=== PATIENT | female | born 1975 | race Caucasian/White ===

== ENCOUNTER 2021-01-12 03:59 | Outpatient (CLI) | payer MEDICARE, MEDICAID, SELFPAY ==
--- NOTE | 2021-01-12 07:30 | DI.MAMMO_ITS ---
EXAM: MG MAMMO SCREENING CLINICAL HISTORY: screening,Z12.39 TECHNIQUE: Bilateral full field digital CC and MLO mammographic images were obtained with 3D tomosyn thesis and utilizing computer aided detection (CAD). COMPARISON: Available for comparison. FINDINGS: Masses/Architectural Distortion: None seen. Stable areas of asymmetric breast tissue in both breasts. Microcalcifications: No suspicious pleomorphic-type are seen. Skin Thickening/Nipple Retraction: None. IMPRESSION: 1. No significant interval change with no specific features of malignancy noted. 2. Unless there is more urgent need, screening mammography is recommended, as per [employer] guidelines. BI-RADS Category 2 - Benign Findings Breast Density - Category B - Scattered areas of fibroglandular density Breast density category C or D implies that the patient has dense breast tissue. Dense breast tissue is very common and is not abnormal but dense breast tissue can make it harder to find cancer on a ma mmogram. Also, dense breast tissue may increase their breast cancer risk. This information about the result of the mammogram report was provided to the patient to raise their awareness. Use this report when you speak with the patient about their risks for breast cancer, which includes their family hist ory. At that time, you may recommend for more screening tests (Ultrasound or MRI) as they might be us eful based on their risk. A negative radiographic report should not delay biopsy if a dominant or clinically suspicious mass is present. Up to ten percent of cancers are not identified on mammography. A negative report may reinforce clinical impression. Adenosis and dense breasts may obscure an underlying neoplasm. False positive reports average 6 to 10%. Patient will receive a letter notifying them of these results.
== END 2021-01-12 04:19 ==
DX: Z12.31 Encounter for screening mammogram for malignant neoplasm of breast (principal)
CPT/HCPCS: 77063; 77067

== ENCOUNTER 2021-01-19 02:19 | Outpatient (CLI) | payer MEDICARE, MEDICAID, SELFPAY ==
[2021-01-19 11:08] LABS: ALT 36 U/L (14-59); AST 17 U/L (15-37); Albumin 3.8 g/dL (3.4-5.0); Alkaline Phosphatase 118 U/L (46-116); Anion Gap 5.7 mmol/L (3-11); BUN 15 mg/dL (7-18); Bilirubin, Total 0.4 mg/dL (0.2-1.0); CO2 32.3 mmol/L (21.0-32.0); CREATININE 0.9 mg/dL (0.55-1.02); Calcium 10.1 mg/dL (8.5-10.1); Calculated LDL 217 mg/dL (<100); Chloride 100 mmol/L (98-107); Cholesterol 305 mg/dL (<200); Glucose 96 mg/dL (74-106); HDL Cholesterol 44 mg/dL (40-60); Potassium 4.3 mmol/L (3.5-5.1); Sodium 138 mmol/L (136-145); Total Protein 8.1 g/dL (6.4-8.2); Triglyceride 223 mg/dL (<150)
== END 2021-01-19 02:20 | disposition home or self-care (01) ==
LOC: LBO 02:19
DX: E78.5 Hyperlipidemia, unspecified (principal)
CPT/HCPCS: 36415; 80053; 80061

== ENCOUNTER 2021-12-19 14:49 | Outpatient (CLI) | payer MEDICARE, MEDICAID, SELFPAY ==
--- NOTE | 2021-12-19 11:30 | DI.CT_ITS ---
Exam(s) CT HEAD WO EXAM: CT HEAD WO CLINICAL HISTORY: constant headache for one month. TECHNIQUE: Imaging Protocol: Axial computed tomography images with coronal and sagittal reformatted images were created and reviewed COMPARISON: No exams were available for comparison FINDINGS: There are no skull fractures nor fluid in the visualized paranasal sinuses. There is no evidence of intracranial hemorrhage, mass effect, or shift of midline structures. There are no extra-axial fluid collections. The ventricles are not enlarged or shifted and there is no blo od within the ventricular system nor within the basal cisterns. IMPRESSION: No acute intracranial findings on this noninfused CT scan of the brain. RADIATION DOSE DELIVERED: 688.77mGy.cm Total DLP DATA REPOSITORY: All CT scans at this facility are submitted to the National Radiology Data Registry (NRDR) Dose Index Registry (DIR) with the [employer] (A[employer]). RADIATION OPTIMIZATION: All CT scans at this facility use at least one of these dose optimization te chniques: automated exposure control; mA and/or kV adjustment per patient size (includes targeted exa ms where dose is matched to clinical indication); or iterative reconstruction.
== END 2021-12-19 15:09 ==
PROVIDERS: Visit Provider Family Medicine
DX: G44.89 Other headache syndrome
CPT/HCPCS: 70450

== ENCOUNTER → 2022-01-31 12:29 | Outpatient (BNVA) | payer MEDICARE, MEDICAID, SELFPAY | PROVIDERS: Referring Provider Family Medicine; Visit Provider Nurse Practitioner Adult Health | DX: R42 Dizziness and giddiness (principal); G43.009 Migraine without aura, not intractable, without status migrainosus; R20.2 Paresthesia of skin | CPT/HCPCS: 99205 ==

== ENCOUNTER 2022-02-08 02:27 | Outpatient (CLI) | payer MEDICARE, MEDICAID, SELFPAY ==
[2022-02-08 10:55] LABS: ALT 27 U/L (14-59); AST 12 U/L (15-37); Albumin 4.1 g/dL (3.4-5.0); Alkaline Phosphatase 108 U/L (46-116); Anion Gap 11.2 mmol/L (3-11); BUN 21 mg/dL (7-18); Bilirubin, Total 0.3 mg/dL (0.2-1.0); CO2 25.8 mmol/L (21.0-32.0); CREATININE 0.9 mg/dL (0.55-1.02); Calcium 9.3 mg/dL (8.5-10.1); Calculated LDL 247 mg/dL (<100); Chloride 101 mmol/L (98-107); Cholesterol 338 mg/dL (<200); Glucose 99 mg/dL (74-106); HDL Cholesterol 45 mg/dL (40-60); Potassium 4.3 mmol/L (3.5-5.1); Sodium 138 mmol/L (136-145); Total Protein 7.9 g/dL (6.4-8.2); Triglyceride 233 mg/dL (<150)
[2022-02-08 11:18] LABS: Vitamin D 25 Total 72.8 ng/mL (30-100)
== END 2022-02-08 02:28 | disposition home or self-care (01) ==
LOC: LBO 02:27
PROVIDERS: Visit Provider Family Medicine
DX: Z00.00 Encounter for general adult medical examination without abnormal findings; E78.5 Hyperlipidemia, unspecified; R10.9 Unspecified abdominal pain
CPT/HCPCS: 36415; 80053; 80061; 82306

== ENCOUNTER 2022-02-11 01:09 | Outpatient (CLI) | payer MEDICARE, MEDICAID, SELFPAY ==
--- NOTE | 2022-02-11 07:30 | DI.MRI_ITS ---
Exam(s) MR BRAIN WO EXAM: MR BRAIN WO CLINICAL HISTORY: Worsening dizziness,headache,r51.9 TECHNIQUE: Multiplanar multisequence MRI of the brain was performed. COMPARISON: CT CT HEAD WO from 12/19/2021 FINDINGS: CEREBRAL PARENCHYMA: There is no evidence of intracranial hemorrhage, mass effect, or shift of midline structures. There are no extra-axial fluid collections. Ventricles are not enlarged or shifted. There is no abnormal signal abnormality in the periventricular white matter. There is no significant focal signal abnormality in the cerebellar hemispheres. However, there is significant signal abnormality on both sides of the francesca measuring 2 cm wide by 1 c m AP, not associated with hemorrhage nor abnormal signal on diffusion imaging to suggest acute infarc t at this level. No restricted diffusion at this level nor elsewhere in the brain. SWI imaging reveals no evidence of microhemorrhages. PITUITARY GLAND: No mass nor parasellar abnormality. No obvious abnormality in the cavernous sinuses. FLOW VOIDS: The expected flow voids are noted. Flow void in the basilar artery is present. No evide nce of obvious aneurysm nor obvious vascular malformation. PARANASAL SINUSES: The visualized paranasal sinuses appear unremarkable. No obvious finding ORBITS: No obvious findings. IMPRESSION: Main findings here in the francesca where there is significant signal abnormality as described above. Abs ence of restricted diffusion on DWI implies that this is most probably not an acute ischemic event. Flow void in the adjacent basilar artery appears intact. No other abnormal signal in the brain inclu ding periventricular white matter. Significant consideration here for central pontine myelinolysis. DATA REPOSITORY:
== END 2022-02-11 01:29 ==
PROVIDERS: Visit Provider Family Medicine
DX: R51.9 Headache, unspecified (principal); R42 Dizziness and giddiness; R94.02 Abnormal brain scan
CPT/HCPCS: 70551

== ENCOUNTER 2022-02-14 02:19 | Outpatient (CLI) | payer MEDICARE, MEDICAID, SELFPAY ==
[2022-02-19 14:32] LABS: CSF Bands 1 bands; CSF Olig Bands Interpretation 0 bands (<2); Serum Bands 1 bands
== END 2022-02-14 02:20 | disposition home or self-care (01) ==
LOC: LBO 02:19
PROVIDERS: Visit Provider Nurse Practitioner Adult Health
DX: R27.8 Other lack of coordination (principal)
CPT/HCPCS: 36415; 62270; 82945; 89050; 89051; 82040; 82042; 82784; 83916; 84157; 87070; 87205

== ENCOUNTER 2022-02-14 09:30 | Outpatient (CLI) | payer MEDICARE, MEDICAID, SELFPAY ==
[2022-02-14 09:49] VITALS: BP 106/85; PULSE 68; RESP 16; TEMP 36.4; O2SAT 98
--- NOTE | 2022-02-14 10:18 | W.ANESPRE ---
General Info Date of Service Date Performed: 02/14/22 Height: 5 ft 3 in Weight: 71 kg Body Mass Index (BMI): 27.7 Surgical Procedure: Operation Date: 02/14/22 10:25 Proposed Procedure Side Surgeon p Lumbar Puncture JAYCEE Brady Allergies and Home Medications Allergies Allergy/AdvReac Type Severity Reaction Status Date / Time niacin Allergy Intermediate RASH, Verified 02/14/22 09:44 FLUSHING lamotrigine Allergy Mild FACIAL RASH Verified 02/14/22 09:44 oxcarbazepine Allergy Unknown Verified 02/14/22 09:44 fenofibrate,micronized AdvReac Severe MUSCLE PAIN Verified 02/14/22 09:44 [From Tricor] valacyclovir HCl AdvReac Severe INCREASED Verified 02/14/22 09:44 [From Valtrex] DEPRESSION meloxicam [From Mobic] AdvReac Intermediate H/As Verified 02/14/22 09:44 gabapentin AdvReac Unknown JUST Verified 02/14/22 09:44 DOESN'T LIKE SIDE EFFFECTS Home Medication Medication Instructions Recorded cholecalciferol (vitamin D3) 25 1,000 unit PO BID 01/12/18 mcg (1,000 unit) capsule magnesium oxide 500 mg capsule 500 mg PO DAILY 01/02/21 omega-3 fatty acids 1,000 mg 4,000 mg PO DAILY cap 01/02/21 capsule turmeric root extract 500 mg 2,000 mg PO DAILY cap 01/02/21 capsule vitamin B complex (B 1 tab PO DAILY 01/02/21 Complex-Vitamin B12) metronidazole 0.75 % topical cream 1 applic TOPICAL BID #45 g 02/01/21 diphenhydramine HCl 25 mg capsule 25 mg PO TID PRN #30 cap 02/02/21 mupirocin 2 % topical ointment 1 applic TOPICAL TID #22 g 02/07/21 cyclobenzaprine 10 mg tablet 10 mg PO TID PRN #30 tab 08/09/21 desvenlafaxine succinate 50 mg 50 mg PO DAILY #30 tab-cap 08/09/21 tablet,extended release 24 hr (Pristiq) tramadol 50 mg tablet 50 mg PO Q12H PRN #60 tab-cap 08/09/21 acetaminophen 500 mg tablet 1,000 mg PO Q6H PRN tab 12/19/21 meclizine 25 mg tablet 25 mg PO TID PRN #30 tab 01/24/22 prochlorperazine maleate 5 mg See Rx Instructions PO TID PRN #30 01/31/22 tablet tab topiramate 25 mg tablet (Topamax) 25 mg PO QHS #30 tab 01/31/22 sumatriptan 5 mg/actuation nasal 5 mg INTRANASAL ONCE PRN #6 ea 02/04/22 spray PFSH Active Problems Active Problems: Problem Status Onset Code Chronic pain disorder 07/15/17 G89.4 Hyperlipidemia E78.5 Vitamin deficiency, unspecified E56.9 Muscle spasm of back 01/06/14 M62.830 Low back pain radiating to left leg 01/10/15 M54.5, M79.605 Hip pain, left 01/10/15 M25.552 Gastroesophageal reflux disease 01/06/14 K21.9 Fatigue 12/01/12 R53.83 Depressive disorder F32.9 Arthralgia of multiple joints 09/19/15 M25.50 Insomnia disorder G47.00 Fibromyalgia affecting multiple sites M79.7 Perioral dermatitis L71.0 Headache R51.9 RLQ abdominal pain R10.31 Headache R51.9 BPPV (benign paroxysmal positional vertigo) H81.10 Migraine headache without aura G43.009 Paresthesias R20.2 Clumsiness R27.8 Medical History Medical History History of alcoholism History of tobacco use quit 11/2011 Medical History Comments:: pt reports edible cannibus last night; reports refraining from alcohol at this time. Surgical History Surgical History (Updated 02/14/22 @ 09:42 by Priyanka Faulkner) Abdominal hysterectomy (~2005) Not for cancer Bilateral salpingectomy with oophorectomy (~2005) Hx of appendectomy Tooth extraction (~08/2011) 4 WISDOM TEETH Tobacco Smoking/Tobacco Use Status: Former Tobacco Use Passive smoking exposure: Yes Alcohol Alcohol Intake: current Alcohol intake frequency: holidays/special occasions only Alcohol type: hard liquor Substance Use Substance use: Daily Substance use type: marijuana Counseling provided: none Vital Signs and Lab Results Vital Signs Most Recent Vital Signs in EMR: Most Recent Vital Signs Temp Pulse Resp BP Pulse Ox 36.4 C L 68 16 106/85 98 02/14/22 09:49 02/14/22 09:49 02/14/22 09:49 02/14/22 09:49 02/14/22 09:49 Lab Results Blood Type / Crossmatch: No Data to Display Complete Blood Count: No Data to Display Complete Metabolic Panel: Sodium Level 138 mmol/L (136-145) 02/08/22 09:47 02/08/22 Potassium Level 4.3 mmol/L (3.5-5.1) 02/08/22 09:47 02/08/22 Chloride Level 101 mmol/L (98-107) 02/08/22 09:47 02/08/22 Carbon Dioxide Level 25.8 mmol/L (21.0-32.0) 02/08/22 09:47 02/08/22 Blood Urea Nitrogen 21 mg/dL (7-18) H 02/08/22 09:47 02/08/22 Creatinine 0.9 mg/dL (0.55-1.02) 02/08/22 09:47 02/08/22 Estimated GFR/1.73 m2 >= 60.00 (mL/min/1.73m2) 02/08/22 09:47 02/08/22 Calcium Level 9.3 mg/dL (8.5-10.1) 02/08/22 09:47 02/08/22 Albumin 4.1 g/dL (3.4-5.0) 02/08/22 09:47 02/08/22 Glucose Level 99 mg/dL (74-106) 02/08/22 09:47 02/08/22 Liver Function Panel: Alanine Aminotransferase (ALT/SGPT) 27 U/L (14-59) 02/08/22 09:47 02/08/22 Aspartate Amino Transf (AST/SGOT) 12 U/L (15-37) L 02/08/22 09:47 02/08/22 Coagulation Panel: No Data to Display Cardiac Panel: No Data to Display Arterial Blood Gas: No Data to Display Venous Blood Gas: No Data to Display Pancreas Panel: No Data to Display Thyroid Panel: No Data to Display Infectious Disease: No Data to Display Blood Cultures: No Data to Display Toxicology Panel: No Data to Display Panel: No Data to Display Anesthesia Assessment and Plan Anesthesia History Personal History: No History of Anesthesia Complications Family History: No Family History of Anesthesia Complications Exercise Tolerance Exercise Tolerance: Metabolic Equivalents>4 Pertinent Negatives Pertinent Negatives: No Symptoms of GERD, No Major Cardiovascular Symptoms or Complaints, No Major Pulmonary Symptoms or Complaints and No History of CVA/TIA Cardiac & Pulmonary Exam Cardiac Exam: Normal S1/S2 Heart Sounds Pulmonary Exam: Clear Bilateral Breath Sounds Implantable Cardiac Device Does patient have a Pacemaker or an ICD?: No Airway Exam Known Difficult Airway: No Mallampati Class: 2 Mouth Opening: Normal (> 3cm) Thyromental Distance: Greater than 3 cm Neck Range of Motion: Full ROM Neck Circumference: Normal Teeth Condition: Normal Dentition ASA Classification ASA Score: ASA 2 Emergency Case?: No NPO Status NPO Status: NPO Clears >2 hours, Solids >8 hours Status Status: Not Relevant due to Medical History Anesthesia Plan Resuscitation Status: Full Code Anesthesia Technique: Spinal Anesthesia (Lumbar puncture) Airway Planned: Natural Airway Monitors Used: Standard Monitors Preoperative Comments:: Patient to [facility]SU for lumbar puncture as referred by Dr. Lundberg. No headache today, reports some stifness to lower extremities, some burning and paresthesias.
[2022-02-14 10:43] VITALS: BMI 27.7
[2022-02-14 10:51] VITALS: BP 115/73; PULSE 65; RESP 16; TEMP 36.6; O2SAT 98
[2022-02-14 11:11] VITALS: BP 82/58; PULSE 62; RESP 16; TEMP 36.8; O2SAT 97
--- NOTE | 2022-02-14 11:18 | W.ANESPROC ---
Lumbar Puncture Date Performed: 02/14/22 Procedure Time: 10:51 Requesting Provider: Bety Villa Procedure Location: Day Surgery Unit Standard Monitors Applied: Blood Pressure, SpO2 and See EMR for corresponding vital signs Patient Position: Left Lateral Decubitus Timeout Performed: Yes Sedation Given (Indicate Dose Given): No Sedation given Patient Mental Status: Awake Sterility: Hand Hygiene, Surgical Cap, Surgical Mask, Sterile Gloves, Sterile Drape/Sheet, Sterile Gown and Chlorhexidine Placement Site: L3-L4 Interspace Spinal Needle Type: Rosemary 22 Gauge Needle Length: 3.5 Inch Lumbar Puncture Procedure: Site Prepped, Sterile Drape Placed, 1% Lidocaine to skin and subcutaneous tissue with 25G needle, Spinal Needle Placed, Negative Heme, Positive CSF Flow, CSF Specimen placed into Tubes in Sequential Order and Specimen Labeled, Sent to Lab Ultrasound: Not Used Opening CSF Pressure (cmH2O): 13 Closing CSF Pressure (cmH2O): 11 Paresthesia: Left Paresthesia Duration: Transient Number of Previous Attempts by Other Providers: 2 Number of Attempts (See previous attempts in note section): 3 Procedure Tolerated: No Complications and Patient tolerated well Procedure Outcome: Successful Procedure Comment:: Procedure end time at 1111 Performed By: Walter Reese Other (not listed above): Mary CABRAL attempted twice. Lyndon Reese attempted once and able to obtain
[2022-02-14 12:00] VITALS: BP 99/78; PULSE 61; RESP 16; TEMP 36.4; O2SAT 99
[2022-02-14 12:13] LABS: Glucose (CSF) 61 mg/dL (40-70)
[2022-02-14 12:14] LABS: Total Protein (CSF) 42 mg/dL (15-45)
[2022-02-14 12:21] LABS: Tube # 4
[2022-02-14 12:22] LABS: Clarity Clear; WBC 1 /uL (0-5); Xanthochromia Absent
[2022-02-14 12:23] LABS: RBC 9 /mm3 (0-5)
[2022-02-14 12:36] LABS: RBC Tube#1 CSF 264 /mm3 (0-5)
--- NOTE | 2022-02-14 13:09 | W.ANESPOSTOP ---
Postoperative Evaluation Date, Time and Location Date Performed: 02/14/22 Time Performed: 13:09 Patient Location: Day Surgery Unit Vital Signs Most Recent Imported Vital Signs: Most Recent Vital Signs Temp Pulse Resp BP Pulse Ox 36.4 C L 61 16 99/78 L 99 02/14/22 12:00 02/14/22 12:00 02/14/22 12:00 02/14/22 12:00 02/14/22 12:00 Pain Score Most Recent Pain Score: Most Recent Pain Score Pain Level 0 02/14/22 12:00 Assessment Mental Status: Awake (Alert & Oriented to Patient Baseline) Airway and Respiratory Function: Patent airway with normal (patient baseline) respiratory exam Cardiovascular Function: Hemodynamically Stable Hydration Status: Adequately Hydrated Nausea & Vomiting: No Nausea or Vomiting Pain: Pt. Denies Any Pain Peripheral Nerve Block: Patient did not receive a nerve block Postoperative Comments:: No headache, overall denies complaint. All questions answered.
[2022-02-15 11:06] LABS: Albumin, CSF 20.1 mg/dL (<=25.1); Albumin, S 4.6 g/dL (3.4-4.9); IgG, CSF 3.47 mg/dL (<=5.00); IgG, S 1135 mg/dL (610-1,616); IgG/Albumin, CSF 0.17 Ratio (<=0.24); Synthesis Rate, CSF 1.92 mg/24hrs (<=8.00)
== END 2022-02-14 12:15 | disposition home or self-care (01) ==
PROVIDERS: Nurse Practitioner Adult Health; Visit Provider Nurse Anesthetist, Certified Registered
PROC: 009U3ZZ Drainage of Spinal Canal, Percutaneous Approach (ICD-10-PCS; CPT 62270; principal; 2022-02-14 10:15)
DX: R27.8 Other lack of coordination (principal)
CPT/HCPCS: 62270; 82945; 89050; 89051; 82040; 82042; 82784; 84157; 87070; 87205

== ENCOUNTER 2022-02-19 03:22 | Outpatient (CLI) | payer MEDICARE, MEDICAID, SELFPAY | END 2022-02-19 03:23 | disposition home or self-care (01) | LOC: LBO 03:22 | PROVIDERS: Visit Provider Nurse Practitioner Adult Health ==

== ENCOUNTER → 2022-02-21 01:08 | Outpatient (CLI) | payer MEDICARE, MEDICAID, SELFPAY ==
--- NOTE | 2022-02-21 07:45 | DI.MRI_ITS ---
Exam(s) MR BRAIN W EXAM: MR BRAIN W CLINICAL HISTORY: pontine lesion seen on non-contrast MRI,g93.9. TECHNIQUE: Multiplanar multisequence MRI was performed. COMPARISON: MR MR BRAIN WO from 02/11/2022 FINDINGS: Limited MR examination of the brain was performed with post contrast imaging only, with post contrast axial and coronal T1 weighted imaging and multi planar MP rage imaging. No enhancing lesion identified. Grossly unremarkable appearance [id number] vasculature. Orbit al structures appear intact. IMPRESSION: Negative contrast enhanced MRI. Subtle signal abnormalities noted in the francesca on recent noncontrast MR of February 11 are unlikely to represent pathologic process, however follow-up brain MRI may be obt ained in 12 months if clinically indicated. DATA REPOSITORY:
[2022-02-21] MEDS: Gadoterate meglumine 20 ML VIAL IVP (13:54)
[2022-02-21] MEDS: Normal Saline Flush 10 ML SYR IVP (13:54)
== END ==
PROVIDERS: Visit Provider Nurse Practitioner Adult Health
DX: G93.9 Disorder of brain, unspecified (principal)
CPT/HCPCS: 70552

== ENCOUNTER → 2022-03-18 08:59 | Outpatient (BNVA) | payer MEDICARE, MEDICAID, SELFPAY | PROVIDERS: Visit Provider Nurse Practitioner Adult Health | DX: G43.009 Migraine without aura, not intractable, without status migrainosus (principal); R20.2 Paresthesia of skin; R42 Dizziness and giddiness | CPT/HCPCS: 99213; 99214 ==

== ENCOUNTER → 2022-03-21 09:42 | Outpatient (BNVA) | payer MEDICARE, MEDICAID, SELFPAY | PROVIDERS: Visit Provider Nurse Practitioner Adult Health | DX: G43.909 Migraine, unspecified, not intractable, without status migrainosus (principal) | CPT/HCPCS: 99211; J1885; J2550; 96372 ==

== ENCOUNTER → 2022-05-31 12:28 | Outpatient (CLI) | payer MEDICARE, MEDICAID, SELFPAY ==
--- NOTE | 2022-05-31 07:03 | DI.MAMMO_ITS ---
Exam(s) MAMMO SCREENING EXAM: MAMMO SCREENING CLINICAL HISTORY: screening,Z12.39 TECHNIQUE: Mammograms were interpreted according to the usual protocol including computer analysis w [employer] CAD system, tomosynthesis and C-view imaging. COMPARISON: 2014 through 2020 FINDINGS: The breasts are composed of scattered fibroglandular densities, Breast Density category B. No suspicious masses or suspicious microcalcifications are seen. No skin thickening or abnormal axillary lymph nodes are seen. There has been no significant change from prior exams. IMPRESSION: BI-RADS Category 1, Negative mammogram Yearly screening mammography is recommended. Breast Density - Category B, scattered fibroglandular densities. A negative radiographic report should not delay biopsy if a dominant or clinically suspicious mass is present. Up to ten percent of cancers are not identified on mammography. A negative report may reinforce clinical impression. Adenosis and dense breasts may obscure an underlying neoplasm. False positive reports average 6 to 10%. Patient will receive a letter notifying them of these results.
== END ==
DX: Z12.31 Encounter for screening mammogram for malignant neoplasm of breast (principal); R92.8 Other abnormal and inconclusive findings on diagnostic imaging of breast
CPT/HCPCS: 77063; 77067

== ENCOUNTER → 2022-06-17 14:27 | Outpatient (BNVA) | payer MEDICARE, MEDICAID, SELFPAY | PROVIDERS: Visit Provider Nurse Practitioner Adult Health | DX: M79.7 Fibromyalgia (principal); F32.9 Major depressive disorder, single episode, unspecified; G43.009 Migraine without aura, not intractable, without status migrainosus | CPT/HCPCS: 99213; 99214 ==

== ENCOUNTER → 2022-06-19 08:56 | Outpatient (BNVA) | payer MEDICARE, MEDICAID, SELFPAY | PROVIDERS: Visit Provider Surgery | DX: Z80.0 Family history of malignant neoplasm of digestive organs (principal); K21.9 Gastro-esophageal reflux disease without esophagitis; Z12.11 Encounter for screening for malignant neoplasm of colon ==

== ENCOUNTER 2022-07-02 02:57 | Outpatient (CLI) | payer MEDICARE, MEDICAID, SELFPAY ==
[2022-07-02 12:19] LABS: Source Nasal/Nares
[2022-07-02 15:41] LABS: COVID-19 PCR Negative (Negative)
== END 2022-07-02 02:58 | disposition home or self-care (01) ==
LOC: LBO 02:57
PROVIDERS: Visit Provider Surgery
DX: Z20.822 Contact with and (suspected) exposure to COVID-19 (principal); Z01.818 Encounter for other preprocedural examination
CPT/HCPCS: 87635; 99212

== ENCOUNTER 2022-07-04 11:01 | Day surgery (SDC) | payer MEDICARE, MEDICAID, SELFPAY ==
--- NOTE | 2022-07-04 09:08 | W.PM.DSUDISC ---
Discharge Plan Disposition Patient Disposition: HOME Condition: Good Discharge Details Reason For Visit: routine health maintenance screening colonoscopy Attending Provider: Josemanuel Love Primary Care Provider: Marta Juárez Home Meds and New Rx's Prescriptions: Continued magnesium oxide 500 mg capsule 500 mg PO DAILY omega-3 fatty acids 1,000 mg capsule 4,000 mg PO DAILY vitamin B complex [B Complex-Vitamin B12] Tablet 1 tab PO DAILY turmeric root extract 500 mg capsule 2,000 mg PO DAILY cyclobenzaprine 10 mg tablet 10 mg PO TID PRN (Reason: muscle spasm) Qty: 30 0RF docusate sodium [Colace] 100 mg capsule 100 mg PO DAILY tramadol 50 mg tablet 50 mg PO Q12H PRN Qty: 60 0RF acetaminophen 500 mg tablet 1,000 mg PO Q6H PRN Aimovig Autoinjector 140 mg/mL auto-injector 140 mg subcut QMONTH Qty: 1 3RF meclizine 25 mg tablet 25 mg PO TID PRN (Reason: dizziness) Qty: 30 1RF cholecalciferol (vitamin D3) 25 mcg (1,000 unit) capsule 1,000 unit PO DAILY sumatriptan 5 mg/actuation spray,non-aerosol 5 mg intranasal ONCE PRN (Reason: migraine headache) Qty: 6 3RF Rx Instructions: as a single dose; into one nostril. May repeat after 2 hours. No more than 2 doses in 24 hours. desvenlafaxine succinate [Pristiq] 50 mg tablet extended release 24 hr 50 mg PO DAILY Qty: 30 11RF Rx Instructions: 1 TAB DAILY Discontinued bisacodyl [Dulcolax (bisacodyl)] 5 mg tablet,delayed release (DR/EC) 5 mg PO ONCE Qty: 4 0RF Rx Instructions: take per colonoscopy instructions polyethylene glycol 3350 17 gram/dose powder 238 g PO ONCE Qty: 238 0RF Rx Instructions: take per colonoscopy instructions Discharge Instructions Instructions: Upper Endoscopy (DC), Colonoscopy (DC), Diet for Stomach Ulcers and Gastritis (ED) Additional Instructions: 1. If tolerated, consume a soft, low fiber diet for 1-2 days. [address] Do not drive, drink alcohol, operate machinery, make critical decisions, or do activities that require coordination or balance for 24 hours. 3. Because air was put into your colon during the procedure, expelling air from your rectum (passing gas or farting) is normal. 4. You may not have a bowel movement for 1-3 days because of the colonoscopy prep. This is normal. 5. You may experience a sore throat for 24 to 48 hours. You may use throat lozenges or gargle with warm salt water to relieve the discomfort. 6. Because air was put into your stomach during the procedure, you may experience some belching. 7. Go directly to the emergency room if you notice any of the following: Develop chills (warm to touch), or if you have a thermometer and your temperature is above 101 Difficulty breathing or difficultly swallowing Persistent vomiting Severe abdominal pain, other than gas cramps Severe chest pain Black, tarry stools Any bleeding ? exceeding one tablespoon 8. Call your physician if the site where your intravenous was started becomes red, swollen, painful, and warm to touch. 9. Your physician has reviewed your pre-procedure medications. Please continue to take those medications as previously ordered. You will be given specific information/education regarding any changes to your medications before leaving. Referrals: Marta Juárez NP [Primary Care Provider] - Activity:: Activity as Tolerated Diet:: As Tolerated Discharge Orders Discharge Orders: Discharge Order (Routine); Ordered 07/04/22 Ordered By: Josemanuel Love
--- NOTE | 2022-07-04 09:11 | W.COLOREPORT ---
Colonoscopy Report Date of procedure: 07/04/22 Pre-op diagnosis general: routine health maintenece screening colonoscopy Post-op diagnosis procedure note: other (gastritis, gastric ulcer) Procedure: colonoscopy and EGD Surgeon: Josemanuel Love Anesthesia Type: General:No Airway Estimated blood loss (mL): 10 Pathology: other (gastric ulcer, gastric body biopsies) Complications: None Disposition: same day Indications: eBrta is a 46-year-old woman with longstanding gastroesophageal reflux disease and a recent recrudescence of her dyspepsia despite ongoing proton pump inhibition therapy. Additionally, she has an appropriate age for screening colonoscopy as part of routine health maintenance. Prep: Miralax/Dulcolax Procedure Start Time: 13:08 Procedure End Time: 13:49 Retraction Time: 29 Findings: gastritis, pre-pyloric gastric ulcer <1 cm Procedure Description: After the initiation of monitored anesthetic care, and with the assistance of a bite block, I advanced a standard gastroscope through the mouth past the hypopharynx and into the esophagus.? Under the direct vision of the scope, I advanced down the esophagus into the stomach.? Once I entered the stomach, I performed a brief inspection, followed by retroflexion towards the gastric cardia.? This appeared normal.? After that, I gently advanced the scope around the incisura angularis and examined the pylorus. There was a prepyloric gastric ulcer less than 1 cm in diameter. There was no evidence of active bleeding nor was there any evidence of visible vessel. I biopsied this with cold forceps. There was minimal bleeding. Next, I advanced the scope through the pylorus into the duodenum.? The mucosa was pink and healthy appearing.? There were no abnormalities.? I was able to visualize bile draining into the duodenum through the ampulla Vater. ?Next, I began retracting the endoscope.? Again, I returned to the stomach which was carefully examined once again.? I then gently desufflated some of the stomach, and withdrew the endoscope into the distal esophagus. . ?Finally, I withdrew the scope along the length of the esophagus taking great care to examine the entirety of the mucosa.? I did not appreciate any abnormalities. I then repositioned Berta into the left lateral decubitus position, I began by performing an external anorectal exam.? Perineum and skin were normal, as was the anal verge.? There was no evidence of external hemorrhoids.? Next, I performed a digital rectal exam.? I did not appreciate any abnormal findings.? Next, I advanced a colonoscope into the rectal vault.? I performed retroflexion.? I did not see signs of pathologic internal hemorrhoids.? Using insufflation, I then advanced the colonoscope beyond the rectal folds and into the sigmoid colon before advancing towards the cecum.? The quality of the prep was adequate.? The scope was noted to be in the cecum by identification of the ileocecal valve and appendiceal orifice.? I then began withdrawing the colonoscope using repeated irrigation as necessary for full evaluation of the colonic mucosa. ?Once the scope was withdrawn to the level of the rectum, great care was taken to examine portions of the rectal folds.? Finally, the scope was withdrawn and the patient was brought to the same-day surgery recovery unit as the anesthetic wore off. ?The findings and instructions were shared with the patient prior to discharge.
[2022-07-04 11:15] VITALS: BP 121/78; PULSE 84; RESP 18; TEMP 36.4; O2SAT 98
--- NOTE | 2022-07-04 11:47 | W.ANESPRE ---
General Info Date of Service Date Performed: 07/04/22 Height: 5 ft 3 in Weight: 68.2 kg Body Mass Index (BMI): 26.6 Surgical Procedure: Operation Date: 07/04/22 13:05 Proposed Procedure Side Surgeon p Colonoscopy/Gastroscopy Josemanuel Love MD Meds Allergies and Home Medications Allergies Allergy/AdvReac Type Severity Reaction Status Date / Time niacin Allergy Intermediate RASH, Verified 07/04/22 11:24 FLUSHING lamotrigine Allergy Mild FACIAL RASH Verified 07/04/22 11:24 oxcarbazepine Allergy Unknown Verified 07/04/22 11:24 fenofibrate,micronized AdvReac Severe MUSCLE PAIN Verified 07/04/22 11:24 [From Tricor] valacyclovir HCl AdvReac Severe INCREASED Verified 07/04/22 11:24 [From Valtrex] DEPRESSION meloxicam [From Mobic] AdvReac Intermediate H/As Verified 07/04/22 11:24 gabapentin AdvReac Unknown JUST Verified 07/04/22 11:24 DOESN'T LIKE SIDE EFFFECTS Home Medication Medication Instructions Recorded magnesium oxide 500 mg capsule 500 mg PO DAILY 01/02/21 omega-3 fatty acids 1,000 mg 4,000 mg PO DAILY 01/02/21 capsule turmeric root extract 500 mg 2,000 mg PO DAILY 01/02/21 capsule vitamin B complex (B 1 tab PO DAILY 01/02/21 Complex-Vitamin B12 tablet) tramadol 50 mg tablet 50 mg PO Q12H PRN chronic pain 08/09/21 back, legs, shoulders - use sparingly #60 tab-caps acetaminophen 500 mg tablet 1,000 mg PO Q6H PRN 12/19/21 meclizine 25 mg tablet 25 mg PO TID PRN dizziness #30 tabs 01/24/22 cholecalciferol (vitamin D3) 25 1,000 unit PO DAILY 04/29/22 mcg (1,000 unit) capsule cyclobenzaprine 10 mg tablet 10 mg PO TID PRN muscle spasm #30 04/29/22 tabs sumatriptan 5 mg/actuation nasal 5 mg intranasal ONCE PRN migraine 05/23/22 spray headache #6 ea desvenlafaxine succinate 50 mg 50 mg PO DAILY #30 tab-caps 06/06/22 tablet,extended release 24 hr (Pristiq) erenumab-aooe 140 mg/mL 140 mg subcut QMONTH #1 mL 06/17/22 subcutaneous auto-injector (Aimovig Autoinjector) docusate sodium 100 mg capsule 100 mg PO DAILY 06/19/22 (Colace) Current Visit Medications: Current Medications Generic Name Dose Route Start Last Admin Trade Name Freq PRN Reason Stop Dose Admin Ringer's Solution 1,000 mls @ 80 mls/hr 07/04/22 06:00 IV 08/02/22 23:59 INFUSION ISH IV Miscellaneous Supplies 1 each 07/04/22 06:00 Iv Access IV 08/02/22 23:59 DIRECTED ISH Sodium Chloride 0 ml 07/04/22 06:00 Normal Saline Flush 10 Ml Syr IV 08/02/22 23:59 PRN PRN Sodium Chloride 0 ml 07/04/22 06:00 Normal Saline 10 Ml Vial IJ 08/02/22 23:59 DIRECTED PRN Sterile Water 0 ml 07/04/22 06:00 Water,Injection,Sterile 10 Ml Vial IJ 08/02/22 23:59 DIRECTED PRN PFSH Active Problems Active Problems: Problem Status Onset Code Vasovagal near-syncope R55 Vasovagal episode R55 Colon cancer screening Z12.11 Vertigo R42 Chronic pain disorder 07/15/17 G89.4 Hyperlipidemia E78.5 Vitamin deficiency, unspecified E56.9 Muscle spasm of back 01/06/14 M62.830 Low back pain radiating to left leg 01/10/15 M54.5, M79.605 Hip pain, left 01/10/15 M25.552 Gastroesophageal reflux disease 01/06/14 K21.9 Fatigue 12/01/12 R53.83 Depressive disorder F32.9 Arthralgia of multiple joints 09/19/15 M25.50 Insomnia disorder G47.00 Fibromyalgia affecting multiple sites M79.7 Headache R51.9 BPPV (benign paroxysmal positional vertigo) H81.10 Migraine headache without aura G43.009 Paresthesias R20.2 Clumsiness R27.8 Medical History Medical History History of alcoholism History of tobacco use quit 11/2011 Medical History Comments:: Pt states she does get headaches after anesthesia Surgical History Surgical History Abdominal hysterectomy (~2005) Not for cancer Bilateral salpingectomy with oophorectomy (~2005) Hx of appendectomy Tooth extraction (~08/2011) 4 WISDOM TEETH Tobacco Smoking/Tobacco Use Status: Former Tobacco Use Passive smoking exposure: Yes Second hand exposure: Yes Alcohol Alcohol Intake: never Substance Use Substance use: Daily Substance use type: marijuana Counseling provided: none Details: Pt smokes it, last used 07/03/22 2000p Vital Signs and Lab Results Vital Signs Most Recent Vital Signs in EMR: Most Recent Vital Signs Temp Pulse Resp BP Pulse Ox 36.4 C L 84 18 121/78 98 07/04/22 11:15 07/04/22 11:15 07/04/22 11:15 07/04/22 11:15 07/04/22 11:15 Lab Results Blood Type / Crossmatch: No Data to Display Complete Blood Count: No Data to Display Complete Metabolic Panel: No Data to Display Liver Function Panel: No Data to Display Coagulation Panel: No Data to Display Cardiac Panel: No Data to Display Arterial Blood Gas: No Data to Display Venous Blood Gas: No Data to Display Pancreas Panel: No Data to Display Thyroid Panel: No Data to Display Infectious Disease: Coronavirus (COVID-19)(PCR) Negative (Negative) 07/02/22 08:30 Coronavirus 2019 Source Nasal/Nares 07/02/22 08:30 Blood Cultures: No Data to Display Toxicology Panel: No Data to Display Panel: No Data to Display Anesthesia Assessment and Plan Anesthesia History Personal History: No History of Anesthesia Complications Family History: No Family History of Anesthesia Complications Exercise Tolerance Exercise Tolerance: Metabolic Equivalents>4 Pertinent Negatives Pertinent Negatives: No Symptoms of GERD Cardiac & Pulmonary Exam Cardiac Exam: Normal S1/S2 Heart Sounds Pulmonary Exam: Clear Bilateral Breath Sounds Implantable Cardiac Device Does patient have a Pacemaker or an ICD?: No Airway Exam Known Difficult Airway: No Mallampati Class: 2 Mouth Opening: Normal (> 3cm) Thyromental Distance: Greater than 3 cm Neck Range of Motion: Full ROM Neck Circumference: Normal Teeth Condition: Normal Dentition ASA Classification ASA Score: ASA 2 NPO Status NPO Status: NPO Clears >2 hours, Solids >8 hours Status Status: History of Hysterectomy Anesthesia Plan Resuscitation Status: Full Code Anesthesia Technique: General Anesthesia Airway Planned: Natural Airway Monitors Used: Standard Monitors
[2022-07-04] MEDS: Lactated Ringers 1,000 ML 80 ML IV (11:48)
[2022-07-04 12:50] VITALS: BMI 26.6
--- NOTE | 2022-07-04 13:15 | STOM_PTH ---
PATIENT: Berta Morton LOC: [facility] U#:[id number] AGE/SX: 46/F ROOM: RE07/04/[address]: Josemanuel Love MD : 1975 BED: DIS: 07/04/2022 SPEC #: [id number] RECD: 07/04/22 17:42 STATUS: [facility] #: [id number] KIM: 07/04/22 13:[address]: Josemanuel Loev DEPT: Surgical Specimen RECD BY: Maritza Payne ENTERED: 07/04/22 17:42 SP TYPE: STOMACH OTHR DR: Marta Juárez APRN Tissues: 1 - STOMACH BIOPSY 2 - STOMACH BIOPSY 3 - STOMACH BIOPSY Procedures: GROSS AND MICRO LEVEL 4 Comments: [id number]
--- NOTE | 2022-07-04 13:44 | W.ANESPOSTOP ---
Postoperative Evaluation Date, Time and Location Date Performed: 07/04/22 Time Performed: 14:02 Patient Location: Day Surgery Unit Vital Signs Most Recent Imported Vital Signs: Most Recent Vital Signs Temp Pulse Resp BP Pulse Ox 36.4 C L 84 18 121/78 98 07/04/22 11:15 07/04/22 11:15 07/04/22 11:15 07/04/22 11:15 07/04/22 11:15 Most Recent Manually Entered Vital Signs: Adult Blood Pressure: 121/78 Heart Rate: 84 Respirations: 18 Oxygen Saturation (%): 98 Temperature (C): 36.4 C Pain Score (0-10 Scale): 0 Pain Score Most Recent Pain Score: Most Recent Pain Score Pain Level 2 07/04/22 11:15 Assessment Mental Status: Arousable with meaningful communication Airway and Respiratory Function: Patent airway with normal (patient baseline) respiratory exam Cardiovascular Function: Hemodynamically Stable Hydration Status: Adequately Hydrated Nausea & Vomiting: No Nausea or Vomiting Pain: Pt. Denies Any Pain Peripheral Nerve Block: Patient did not receive a nerve block
[2022-07-04 13:51] VITALS: BP 89/61; PULSE 74; RESP 16; TEMP 36.3; O2SAT 96
[2022-07-04 14:05] VITALS: BP 121/78; PULSE 84; RESP 18; TEMPC 36.4; O2SAT 98
[2022-07-04] MEDS: SUMAtriptan 25 MG TAB PO (14:22)
[2022-07-04 14:24] VITALS: BP 95/68; PULSE 69; RESP 16; TEMP 36.4; O2SAT 100
== END 2022-07-04 15:01 | disposition home or self-care (01) ==
PROVIDERS: Visit Provider Surgery
PROC: (CPT 43239; principal; 2022-07-04 13:00)
DX: Z12.11 Encounter for screening for malignant neoplasm of colon (principal); K25.9 Gastric ulcer, unspecified as acute or chronic, without hemorrhage or perforation; K29.70 Gastritis, unspecified, without bleeding; K31.89 Other diseases of stomach and duodenum
CPT/HCPCS: 43239; G0121; 88305

== ENCOUNTER → 2022-07-23 10:26 | Outpatient (BNVA) | payer MEDICARE, MEDICAID, SELFPAY | PROVIDERS: Visit Provider Nurse Practitioner Adult Health | DX: G44.1 Vascular headache, not elsewhere classified (principal) | CPT/HCPCS: 64405 ==

== ENCOUNTER → 2022-09-03 08:34 | Outpatient (BNVA) | payer MEDICARE, MEDICAID, SELFPAY | PROVIDERS: Visit Provider Nurse Practitioner Adult Health | DX: R51.9 Headache, unspecified (principal) | CPT/HCPCS: 64405 ==

== ENCOUNTER → 2022-09-10 14:20 | Outpatient (BNVA) | payer MEDICARE, MEDICAID, SELFPAY | PROVIDERS: Visit Provider Nurse Practitioner Adult Health | DX: R51.9 Headache, unspecified (principal) | CPT/HCPCS: 99211; J1885; J2550; 96372 ==

== ENCOUNTER → 2022-10-23 10:27 | Outpatient (BNVA) | payer MEDICARE, MEDICAID, SELFPAY | PROVIDERS: PCP Nurse Practitioner Family; Referring Provider Nurse Practitioner Family; Visit Provider Nurse Practitioner Adult Health | DX: G43.009 Migraine without aura, not intractable, without status migrainosus (principal) | CPT/HCPCS: 99213 ==

== ENCOUNTER → 2022-11-18 13:39 | Outpatient (BNVA) | payer MEDICARE, MEDICAID, SELFPAY | PROVIDERS: PCP Nurse Practitioner Family; Referring Provider Nurse Practitioner Family; Visit Provider Nurse Practitioner Adult Health | DX: R51.9 Headache, unspecified (principal) | CPT/HCPCS: 64405 ==

== ENCOUNTER → 2022-12-02 09:06 | Outpatient (BNVA) | payer MEDICARE, MEDICAID, SELFPAY | PROVIDERS: PCP Nurse Practitioner Family; Referring Provider Nurse Practitioner Family; Visit Provider Nurse Practitioner Adult Health | DX: R51.9 Headache, unspecified (principal) | CPT/HCPCS: 64405 ==

== ENCOUNTER → 2023-01-15 07:20 | Outpatient (BNVA) | payer MEDICARE, MEDICAID, SELFPAY | PROVIDERS: PCP Nurse Practitioner Family; Referring Provider Nurse Practitioner Family; Visit Provider Nurse Practitioner Adult Health | DX: R93.89 Abnormal findings on diagnostic imaging of other specified body structures (principal); M79.7 Fibromyalgia; F39 Unspecified mood [affective] disorder; G43.009 Migraine without aura, not intractable, without status migrainosus | CPT/HCPCS: 99213; 99214 ==

== ENCOUNTER → 2023-01-29 13:40 | Outpatient (BNVA) | payer MEDICARE, MEDICAID, SELFPAY | PROVIDERS: PCP Nurse Practitioner Family; Referring Provider Nurse Practitioner Family; Visit Provider Nurse Practitioner Adult Health | DX: R51.9 Headache, unspecified (principal) | CPT/HCPCS: 64405 ==

== ENCOUNTER → 2023-02-11 10:36 | Outpatient (BNVA) | payer MEDICARE, MEDICAID, SELFPAY | PROVIDERS: PCP Nurse Practitioner Family; Referring Provider Nurse Practitioner Family; Visit Provider Nurse Practitioner Adult Health | DX: R51.9 Headache, unspecified (principal) | CPT/HCPCS: 99211; J1885; J2550; 96372 ==

== ENCOUNTER 2023-02-14 00:20 | Outpatient (CLI) | payer MEDICARE, MEDICAID, SELFPAY ==
--- NOTE | 2023-02-14 07:45 | DI.MRI_ITS ---
Exam(s) MR BRAIN WO EXAM: MR BRAIN WO CLINICAL HISTORY: 1 yr f/u abnormal brain MRI,R93.89,SIGNAL ABNORMALITIES IN [place] TECHNIQUE: Multiplanar multisequence MRI of the brain was performed. COMPARISON: MR MR BRAIN WO from 02/11/2022 MR MR BRAIN W from 02/21/2022 FINDINGS: VENTRICLES AND EXTRA AXIAL SPACES: Normal in size and morphology for the patient's age. MIDLINE SHIFT: None. CEREBRAL PARENCHYMA: No focus of restricted diffusion to suggest acute infarct. No space-occupying le elsa identified. HEMORRHAGE: None. BRAINSTEM/CEREBELLUM: There has been no change in appearance of the mild hyperintense signal seen in the [place]. No new areas are appreciated. CALVARIUM: Normal. VISUALIZED PARANASAL SINUSES/MASTOIDS:Clear. [place]: Normal flow void. PITUITARY GLAND: Unremarkable. OTHER FINDINGS: None. IMPRESSION: Stable mild hyperintense signal seen in the [place]. No other abnormal signal is seen in the brain. No intracranial mass or acute infarct is seen. DATA REPOSITORY:
== END 2023-02-14 00:40 ==
LOC: DI 00:21
PROVIDERS: PCP Nurse Practitioner Family; Visit Provider Nurse Practitioner Adult Health
DX: R93.89 Abnormal findings on diagnostic imaging of other specified body structures (principal)
CPT/HCPCS: 70551

== ENCOUNTER → 2023-03-12 14:35 | Outpatient (BNVA) | payer MEDICARE, MEDICAID, SELFPAY | PROVIDERS: PCP Nurse Practitioner Family; Referring Provider Nurse Practitioner Family; Visit Provider Nurse Practitioner Adult Health | DX: R51.9 Headache, unspecified (principal); R93.89 Abnormal findings on diagnostic imaging of other specified body structures | CPT/HCPCS: 64405; 99213 ==

== ENCOUNTER 2023-04-21 04:30 | Outpatient (CLI) | payer MEDICARE, MEDICAID, SELFPAY ==
[2023-04-21 12:16] LABS: ALT 34 U/L (14-59); AST 21 U/L (15-37); Albumin 3.9 g/dL (3.4-5.0); Alkaline Phosphatase 111 U/L (46-116); Anion Gap 7.1 mmol/L (3-11); BUN 14 mg/dL (7-18); Bilirubin, Total 0.3 mg/dL (0.2-1.0); CO2 27.9 mmol/L (21.0-32.0); CREATININE 0.9 mg/dL (0.55-1.02); Calcium 9.9 mg/dL (8.5-10.1); Chloride 102 mmol/L (98-107); Estimated GFR 78.86 (mL/min/1.73m2); Glucose 102 mg/dL (74-106); Potassium 4.1 mmol/L (3.5-5.1); Sodium 137 mmol/L (136-145); Total Protein 8.2 g/dL (6.4-8.2)
== END 2023-04-21 04:31 | disposition home or self-care (01) ==
LOC: LBO 04:30
PROVIDERS: PCP Nurse Practitioner Family; Visit Provider Nurse Practitioner Family
DX: Z00.00 Encounter for general adult medical examination without abnormal findings (principal)
CPT/HCPCS: 36415; 80053

== ENCOUNTER 2023-06-02 02:55 | Outpatient (CLI) | payer MEDICARE, MEDICAID, SELFPAY ==
--- NOTE | 2023-06-02 06:30 | DI.MAMMO_ITS ---
Exam(s) MAMMO SCREENING EXAM: MAMMO SCREENING CLINICAL HISTORY: screening,z12.39 TECHNIQUE: Bilateral full field digital CC and MLO mammographic images were obtained with 3D tomosyn thesis and utilizing computer aided detection (CAD). COMPARISON: Available for comparison. FINDINGS: Masses/Architectural Distortion: There is stable asymmetric densities in both breasts. No suspicious masses are seen. No areas of architectural distortion are present. Microcalcifications: No suspicious pleomorphic-type are seen. Skin Thickening/Nipple Retraction: None. IMPRESSION: 1. No significant interval change with no specific features of malignancy noted. 2. Unless there is more urgent need, screening mammography is recommended, as per [employer] guidelines. BI-RADS Category 2 - Benign Findings Breast Density - Category B - Scattered areas of fibroglandular density Breast density category C or D implies that the patient has dense breast tissue. Dense breast tissue is very common and is not abnormal but dense breast tissue can make it harder to find cancer on a ma mmogram. Also, dense breast tissue may increase their breast cancer risk. This information about the result of the mammogram report was provided to the patient to raise their awareness. Use this report when you speak with the patient about their risks for breast cancer, which includes their family hist ory. At that time, you may recommend for more screening tests (Ultrasound or MRI) as they might be us eful based on their risk. A negative radiographic report should not delay biopsy if a dominant or clinically suspicious mass is present. Up to ten percent of cancers are not identified on mammography. A negative report may reinforce clinical impression. Adenosis and dense breasts may obscure an underlying neoplasm. False positive reports average 6 to 10%. Patient will receive a letter notifying them of these results.
--- NOTE | 2023-06-02 07:58 | DI.CT_ITS ---
Exam(s) CT CHEST WO EXAM: CT CHEST WO CLINICAL HISTORY: Screening for lung cancer,smoker. TECHNIQUE: Imaging protocol: Axial computed tomography images were obtained and coronal and sagittal reformatted images were created and reviewed. COMPARISON: CT UPPER ABD WITH CONTRAST (P) from 06/12/2012 CR CHEST 2 VIEWS PA,LAT from 12/03/2012 FINDINGS: Tracheobronchial tree: Patent where visualized. Pulmonary parenchyma: No consolidation or dominant measurable mass. No architectural distortion. Mediastinum and [place]: No dominant adenopathy or fluid collection. The esophagus is unremarkable. Thyroid gland: Unremarkable. Pleura: No effusion or pneumothorax. Heart: The heart is not dilated. No coronary artery calcifications are seen. No pericardial effusion. Aorta: Thoracic aorta non-dilated. Upper abdomen: Unremarkable. Lymph nodes: Within normal limits. Soft tissues: Unremarkable. Bones:Within normal limits for the patient's age. IMPRESSION: 1. No pulmonary nodules. 2. No acute pulmonary process. RADIATION DOSE DELIVERED: Total DLP Total DLP DATA REPOSITORY: All CT scans at this facility are submitted to the National Radiology Data Registry (NRDR) Dose Index Registry (DIR) with the [employer] (ACR). RADIATION OPTIMIZATION: All CT scans at this facility use at least one of these dose optimization te chniques: automated exposure control; mA and/or kV adjustment per patient size (includes targeted exa ms where dose is matched to clinical indication); or iterative reconstruction.
== END 2023-06-02 03:15 ==
LOC: DI 02:55
PROVIDERS: PCP Nurse Practitioner Family; Visit Provider Nurse Practitioner Family
DX: Z12.31 Encounter for screening mammogram for malignant neoplasm of breast (principal); E11.9 Type 2 diabetes mellitus without complications; F17.210 Nicotine dependence, cigarettes, uncomplicated; Z12.2 Encounter for screening for malignant neoplasm of respiratory organs
CPT/HCPCS: 71250; 77063; 77067

== ENCOUNTER → 2023-06-18 12:26 | Outpatient (BNVA) | payer MEDICARE, MEDICAID, SELFPAY | PROVIDERS: PCP Nurse Practitioner Family; Referring Provider Nurse Practitioner Family; Visit Provider Nurse Practitioner Adult Health | DX: R51.9 Headache, unspecified (principal) | CPT/HCPCS: 64405 ==

== ENCOUNTER 2024-04-29 01:40 | Outpatient (CLI) | payer MEDICARE, MEDICAID, SELFPAY ==
[2024-04-29 12:28] LABS: HCT 39.2 % (36.0-46.0); HGB 13.1 g/dL (11.2-15.7); MCH 30.8 pg (27.0-33.0); MCHC 33.4 % (32.0-36.0); MCV 92 fL (80-95); MPV 9.3 fL (8.0-11.0); Platelet Count 359 10^3/uL (130-400); RBC 4.26 10^6/uL (3.93-5.22); RDW 11.9 % (11.7-14.6); RDW-SD 39.9 fL
[2024-04-29 13:23] LABS: Anion Gap 8.4 mmol/L (3-11); BUN 14 mg/dL (7-18); CO2 28.6 mmol/L (21.0-32.0); CREATININE 0.9 mg/dL (0.55-1.02); Calcium 9.5 mg/dL (8.5-10.1); Chloride 100 mmol/L (98-107); Cholesterol 324 mg/dL (<200); Estimated GFR 78.37 (mL/min/1.73m2); Glucose 113 mg/dL (74-106); HDL Cholesterol 45 mg/dL (40-60); Sodium 137 mmol/L (136-145); Triglyceride 501 mg/dL (<150)
[2024-04-29 13:32] LABS: Hemoglobin A1C 5.8 % (<5.7)
[2024-04-29 13:34] LABS: LDL CHOLESTEROL 178 mg/dL (<100)
== END 2024-04-29 01:41 | disposition home or self-care (01) ==
PROVIDERS: PCP Nurse Practitioner Family; Visit Provider Nurse Practitioner Family
DX: Z00.00 Encounter for general adult medical examination without abnormal findings (principal); K21.9 Gastro-esophageal reflux disease without esophagitis; E78.2 Mixed hyperlipidemia; F32.9 Major depressive disorder, single episode, unspecified; R51.9 Headache, unspecified; G89.4 Chronic pain syndrome; F51.04 Psychophysiologic insomnia; R53.83 Other fatigue
CPT/HCPCS: 36415; 80048; 80061; 83721; 85027; 83036; 84443

== ENCOUNTER 2024-07-09 00:12 | Outpatient (CLI) | payer MEDICARE, MEDICAID, SELFPAY ==
--- NOTE | 2024-07-09 | DI.MAMMO_ITS ---
Exam(s) MAMMO SCREENING EXAM: MAMMO SCREENING CLINICAL HISTORY: screening,Z12.39. TECHNIQUE: Bilateral full field digital CC and MLO mammographic images were obtained with 3D tomosyn thesis and utilizing computer aided detection (CAD). COMPARISON: Prior mammograms were reviewed. FINDINGS: There has been no significant change in the appearance and distribution of the fibroglandular tissue. Asymmetric density in the inferior aspect of the left breast is unchanged from 2015 and therefore danette ign. There are no new spiculated masses nor malignant appearing microcalcification groups. There is no significant architectural distortion nor skin thickening-retraction. IMPRESSION: Stable benign-appearing findings. No radiographic evidence of malignancy. BI-RADS Category 2 - Benign Findings Breast Density - Category B - Scattered areas of fibroglandular density Breast density Category C or D implies that the patient has dense breast tissue. Dense breast tissue can make it harder to find cancer on a mammogram. Dense breast tissue is also associated with an incr eased risk of breast cancer. This information about the result of the mammogram report was provided to the patient to raise their awareness. Use this report when you speak with the patient about their risks for breast cancer, which includes their family history. At that time, you may recommend additional screening tests (Ultrasoun d or MRI) as these tests may add significant information. A negative radiographic report should not delay biopsy if a dominant or clinically suspicious mass is present. Up to ten percent of cancers are not identified on mammography. A negative report may reinforce clinical impression. Adenosis and dense breasts may obscure an underlying neoplasm. False positive reports average 6 to 10%. Patient will receive a letter notifying them of these results.
== END 2024-07-09 00:32 ==
LOC: DI 00:13
PROVIDERS: PCP Nurse Practitioner Family; Visit Provider Nurse Practitioner Family
DX: Z12.31 Encounter for screening mammogram for malignant neoplasm of breast (principal)
CPT/HCPCS: 77063; 77067

== ENCOUNTER → 2024-07-29 10:59 | Outpatient (BNVA) | payer MEDICARE, MEDICAID, SELFPAY | PROVIDERS: PCP Nurse Practitioner Family; Referring Provider Nurse Practitioner Family; Visit Provider Nurse Practitioner Adult Health | DX: G43.009 Migraine without aura, not intractable, without status migrainosus (principal) | CPT/HCPCS: 99213 ==

== ENCOUNTER → 2024-10-28 10:26 | Outpatient (BNVA) | payer MEDICARE, MEDICAID, SELFPAY | PROVIDERS: PCP Nurse Practitioner Family; Referring Provider Nurse Practitioner Family; Visit Provider Nurse Practitioner Adult Health | DX: G43.009 Migraine without aura, not intractable, without status migrainosus (principal) | CPT/HCPCS: 99213 ==

== ENCOUNTER → 2025-01-20 10:01 | Outpatient (BNVA) | payer MEDICARE, MEDICAID, SELFPAY | PROVIDERS: PCP Nurse Practitioner Family; Referring Provider Nurse Practitioner Family; Visit Provider Nurse Practitioner Adult Health | DX: M54.81 Occipital neuralgia | CPT/HCPCS: 64405 ==

== ENCOUNTER → 2025-04-27 11:01 | Outpatient (BNVA) | payer MEDICARE, MEDICAID, SELFPAY | PROVIDERS: PCP Nurse Practitioner Family; Referring Provider Nurse Practitioner Family; Visit Provider Nurse Practitioner Adult Health | DX: G43.009 Migraine without aura, not intractable, without status migrainosus (principal) | CPT/HCPCS: 99213 ==

== ENCOUNTER 2025-07-15 05:34 | Outpatient (CLI) | payer MEDICARE, MEDICAID, SELFPAY ==
--- NOTE | 2025-07-15 12:31 | DI.MAMMO_ITS ---
Exam(s) MAMMO SCREENING EXAM: MAMMO SCREENING CLINICAL HISTORY: screening, Z12.39 TECHNIQUE: Mammograms were interpreted according to the usual protocol including computer analysis with CAD system, tomosynthesis and C-view imaging. COMPARISON: 2016 through 2023 FINDINGS: The breasts are composed of scattered fibroglandular densities, Breast Density category B. No suspicious masses or suspicious microcalcifications are seen. There is stable area of nodularity in the inferior left breast. No skin thickening or abnormal axillary lymph nodes are seen. There has been no significant change from prior exams. IMPRESSION: BI-RADS Category 1, Negative mammogram Yearly screening mammography is recommended. Breast Density - Category B - There are scattered areas of fibroglandular density. Breast density Category C or D implies that the patient has dense breast tissue. Dense breast tissue can make it harder to find cancer on a mammogram. Dense breast tissue is also associated with an increased risk of breast cancer. This information about the result of the mammogram report was provided to the patient to raise their awareness. Use this report when you speak with the patient about their risks for breast cancer, which includes their family history. At that time, you may recommend additional screening tests (Ultrasound or MRI) as these tests may add significant information. A negative radiographic report should not delay biopsy if a dominant or clinically suspicious mass is present. Up to ten percent of cancers are not identified on mammography. A negative report may reinforce clinical impression. Adenosis and dense breasts may obscure an underlying neoplasm. False positive reports average 6 to 10%. Patient will receive a letter notifying them of these results.
== END 2025-07-15 05:54 ==
PROVIDERS: PCP Nurse Practitioner Family; Visit Provider Nurse Practitioner Family
DX: Z12.31 Encounter for screening mammogram for malignant neoplasm of breast (principal); R92.323 Mammographic fibroglandular density, bilateral breasts
CPT/HCPCS: 77063; 77067

== ENCOUNTER → 2025-08-04 11:03 | Outpatient (BNVA) | payer MEDICARE, MEDICAID, SELFPAY | PROVIDERS: PCP Nurse Practitioner Family; Referring Provider Nurse Practitioner Family; Visit Provider Nurse Practitioner Adult Health | DX: R51.9 Headache, unspecified (principal) | CPT/HCPCS: 64405 ==

== ENCOUNTER 2025-08-05 03:59 | Outpatient (CLI) | payer MEDICARE, MEDICAID, SELFPAY ==
[2025-08-05 08:53] LABS: Hemoglobin A1C 5.6 % (<5.7)
[2025-08-05 09:59] LABS: ALT 29 U/L (14-59); AST 20 U/L (15-37); Albumin 3.8 g/dL (3.4-5.0); Alkaline Phosphatase 114 U/L (46-116); Anion Gap 9.9 mmol/L (3-11); BUN 16 mg/dL (7-18); Bilirubin, Total 0.3 mg/dL (0.2-1.0); CO2 27.1 mmol/L (21.0-32.0); Calcium 9.6 mg/dL (8.5-10.1); Chloride 102 mmol/L (98-107); Estimated GFR 77.88 (mL/min/1.73m2); Glucose 104 mg/dL (74-106); Potassium 3.9 mmol/L (3.5-5.1); Sodium 139 mmol/L (136-145); Total Protein 8.3 g/dL (6.4-8.2)
[2025-08-11 16:35] LABS: Apolipoprotein B, Serum 191 mg/dL (48-124); Beta VLDL Cholesterol Not Detected mg/dL (<15); Beta VLDL Triglycerides Not Detected mg/dL (<15); Cholesterol, Total, CDC 350 mg/dL; Chylomicron Cholesterol Not Detected; Chylomicron Triglycerides Not Detected; HDL Cholesterol, CDC 34 mg/dL (>=50); LpX Not detected; Triglycerides, CDC 423 mg/dL; VLDL Triglycerides 293 mg/dL (<120)
== END 2025-08-05 04:00 | disposition home or self-care (01) ==
LOC: LBO 03:59
PROVIDERS: PCP Nurse Practitioner Family; Visit Provider Pharmacist
DX: E78.2 Mixed hyperlipidemia (principal); R73.03 Prediabetes; Z00.00 Encounter for general adult medical examination without abnormal findings; F32.9 Major depressive disorder, single episode, unspecified; K21.9 Gastro-esophageal reflux disease without esophagitis; M79.7 Fibromyalgia; G89.4 Chronic pain syndrome; G43.009 Migraine without aura, not intractable, without status migrainosus
CPT/HCPCS: 36415; 80053; 80061; 83695; 82172; 82664; 83036